=== PATIENT | female | born 1970 | race African-American/Black ===

== ENCOUNTER 2022-09-02 17:25 | Emergency (ER) | payer BC, SELFPAY ==
[2022-09-02] VITALS (8 sets, daily range): BP systolic 127–151; BP diastolic 69–89; PULSE 51–96; RESP 13–22; TEMP 36–37; O2SAT 95–100
--- NOTE | ~2022-09-02 | XR_ITS ---
EXAM: XR shoulder RT min 2V DATE: 09/02/2022 21:07 HISTORY: Status post reduction. COMPARISON: Same date at 6:11 PM. FINDINGS/IMPRESSION: Successful interval right shoulder reduction. No fracture detected. Decreased ri ght lung volume with crowding/atelectasis. Reviewed, dictated and finalized at location K.
--- NOTE | ~2022-09-02 | XR_ITS ---
EXAM: XR shoulder RT min 2V, XR forearm RT 2V, XR humerus RT, XR elbow RT min 3V DATE: 09/02/2022 18:22 (accession [id number]), 09/02/2022 19:15 (accession [id number]), 09/02 18:22 (accession [id number]), 09/02/2022 18:22 (accession [id number]) HISTORY: Fall today, unable to move right arm . COMPARISON: None available. FINDINGS: Normal mineralization. Anteroinferior dislocation of the right glenohumeral joint. The elb ow and wrist joints are aligned. No lytic or blastic lesion. Joint spaces are maintained. No erosion or periosteal change. Visualization of the anterior elbow joint fat pad without significant displacem ent. Soft tissues within normal limits. IMPRESSION: Anteroinferior right shoulder dislocation. Otherwise, no acute osseous finding in the rig ht shoulder, humerus, elbow, or forearm. Reviewed, dictated and finalized at location K. IMPRESSION: Anteroinferior right shoulder dislocation. Otherwise, no acute osse ous finding in the right shoulder, humerus, elbow, or forearm. IMPRESSION: Anteroinferior right shoulder dislocation. Otherwise, no acute osse ous finding in the right shoulder, humerus, elbow, or forearm. IMPRESSION: Anteroinferior right shoulder dislocation. Otherwise, no acute osse ous finding in the right shoulder, humerus, elbow, or forearm.
--- NOTE | 2022-09-02 18:14 | PC.NURSE ---
Pt called for triage and pt still assumed to be in Xray at this time.
--- NOTE | 2022-09-02 20:13 | ED.UPPEXIN ---
HPI - Extremity Injury (Upper) General Chief Complaint: Extremity Injury, Upper Stated Complaint: Right Arm injury Time Seen by Provider: 09/02/22 20:07 History of Present Illness HPI narrative: Slipped/fell and caught herself with right arm about 4pm, with severe pain in right shoulder radiating down arm. Took 2 tylenols [employer] Related Data Allergies Allergy/AdvReac Type Severity Reaction Status Date / Time No Known Allergies Allergy Verified 09/02/22 18:18 Review of Systems Review of Systems: MSK: R arm pain Neuro: No weakness or numbness Exam Narrative: EXAMINATION OF ORGAN SYSTEMS/BODY AREAS: Constitutional: Vital signs per nursing GENERAL: Appears to be in pain HEAD: Normal with no signs of head trauma. EYES: EOMI, conjunctiva normal ENT: Hearing grossly intact LUNGS: Nonlabored breathing. HEART: [Regular rate and rhythm] ABD: Nondistended EXT: Right arm held close to self, tenderness to palpation SKIN: [No rashes or lesions.] NEURO: [Alert and oriented x 3. No gross focal sensory or strength deficits.] PSYCH: Normal affect Course Vital Signs Vital signs: Vital Signs Temperature 96.8 F L 09/02/22 18:18 Pulse Rate 96 09/02/22 18:18 Respiratory Rate 20 09/02/22 18:18 Blood Pressure 127/69 09/02/22 18:18 Pulse Oximetry 96 09/02/22 18:18 Oxygen Delivery Room Air 09/02/22 18:18 Temperature 98.0 F 09/02/22 22:30 Pulse Rate 58 L 09/02/22 22:30 Respiratory Rate 19 09/02/22 22:30 Blood Pressure 129/75 09/02/22 22:30 Pulse Oximetry 98 09/02/22 22:30 Oxygen Delivery Room Air 09/02/22 21:47 Oxygen Flow Rate 2 09/02/22 20:47 Procedures Orthopedic Joint Reduction Joint #1: Orthopedic Joint Reduction Date: 09/02/22 Orthopedic Joint Reduction Time: 20:50 Time Out Performed: Yes Side: right Joint Reduction Location: shoulder Analgesia: procedural sedation Pre-Procedure Neuro Vascular Exam: normal Shoulder Technique Used (if applicable): scapula manipulation and other (Park) Post-reduction neuro exam: intact Post-reduction vascular: intact Post Reduction X-Ray Obtained: Yes Post Reduction X-Ray Results: reduced Splint Applied: Yes Patient Tolerated Procedure: well and no complications Procedural Sedation Procedural Sedation #1: Procedural Sedation Date: 09/02/22 Procedure: shoulder reduction Provider Performed: sedation and procedure Informed Consent Obtained: yes Equipment in Room: bag and mask, capnography, site monitor, crash cart, oxygen, pulse oximeter and suction Plan for Sedation: moderate sedation ASA Class: II Mallampati Classification: class II NPO Status: last solid food (hours ago) Explanation to Patient/Family: Risk/Benefits/Alternatives and Pt/Family agreed with plan Pt. Educated on Procedural Sedation: Yes Re-evaluated immediately prior: Yes Preparation: site monitor applied, pulse oximeter, capnometry used, supplemental O2 applied, suction/airway equipment at bedside and IV secured Fentanyl: IV Fentanyl dose (mcg): 99 Midazolam: IV Midazolam dose (mg): 5 Patient Tolerated Procedure: well Complications: Respiratory Depression-Repositioning Required Interventions: oxygen applied and airway repositioned Total Sedation Time (min): 15 MDM - Extremity Injury (Upper) MDM Narrative Medical decision making narrative: 52-year-old female presenting with shoulder dislocation, no fracture on x-ray, informed consent for moderate sedation and joint reduction obtained. Joint reduced, patient observed until back to baseline, feeling much better, placed in shoulder immobilizer, and orthopedic follow-up and was discharged. Discharge Plan Discharge Clinical Impression: Anterior shoulder dislocation Patient Disposition: Home, Self-Care Conditio
--- NOTE | 2022-09-02 20:47 | PC.NURSE ---
2046 Pt was given 100mg of fentanyl and 5mg Versed ivp.
== END 2022-09-02 22:30 | disposition home or self-care (01) ==
PROVIDERS: Emergency Provider Emergency Medicine
DX: S43.004A Unspecified dislocation of right shoulder joint, initial encounter (principal); X50.0XXA Overexertion from strenuous movement or load, initial encounter
CPT/HCPCS: 23655; 73030; 73060; 73080; 73090; 99285; A4565